=== PATIENT | female | born 1995 | race African-American/Black ===

== ENCOUNTER 2016-10-10 08:14 | Inpatient (IN) | payer MEDICAID ==
[~2016-10-10] VITALS: Ht 162.6 cm; Wt 76.6 kg
[2016-10-10] MEDS ORDERED: PRENAT PO (08:30)
[2016-10-10] MEDS ORDERED: FER325 PO (08:30)
[2016-10-10] MEDS ORDERED: CALC600T11 PO (08:30)
[2016-10-10] MEDS ORDERED: FOLI-49 PO (08:30)
[2016-10-10 08:31] VITALS: Ht 162.6 cm; Wt 76.6 kg
[2016-10-10 08:32] VITALS: BP 121/76; PULSE 85; RESP 18
--- NOTE | 2016-10-10 13:57 | HP ---
Date/Time of Note Date/Time of Note DATE: 10/10/16 TIME: 13:56 OB - History Hx of Present Free Text/Dictation 38+6 wks Labor : 1 Para: 0 Care: Good Care Ultrasounds: Normal mid trimester US Obstetrical Complications: None Medical Complications: None Past Family/Social History * Past Medical, Surgical, Family and Obstetric Histories reviewed from chart. OB Admission Exam Vital Signs Vital Signs Vital Signs Date Time Temp Pulse Resp B/P Pulse Ox O2 Delivery O2 Flow Rate FiO2 10/10/16 08:32 98.6 85 18 121/76 97 Room Air Physical Exam Abdomen: WNL Extremities: Normal Cervical Dilatation: 3cm Effacement: 75% Station: -1 Membranes: Intact Heart Rate: 140's Accelerations: Accelerations Present Decelerations: No Decelerations Varibility: Moderate Contractions on Admission: < 5 Minutes Apart OB Assessment/Plan Reason for admission: observation Plan: Expectant Management YUE CLAROS M.D. Oct 10, 2016 13:57
--- NOTE | 2016-10-10 14:34 | RADRPT ---
PROCEDURE: US OB biophysical profile. CLINICAL INDICATION: decreased movements, contractions TECHNIQUE: Multiple sonographic images of the pelvis were obtained. The images were reviewed on a PACS workstation. COMPARISON: No prior studies are available for comparison. FINDINGS: There is a single viable intrauterine gestation. Cardiac activity is present with 137 beats per min mcgrath. There is a vertex presentation. The placenta is anterior. There is no evidence of placental abruption. There is a normal amount of amniotic fluid with an NOEL = 19.2 cm. Biophysical profile: movement 2/2 tone 2/2. breathing 2/2 NOEL 2/2 Total 10/05 RPTAT: AA . IMPRESSION: Normal biophysical profile. . .Malcolm Caceres MD, MD Date Time Electronically viewed and signed by .Malcolm Caceres MD, MD on 10/10/2016 14:34 .S/
--- NOTE | 2016-10-10 14:35 | TRIAGE ---
OB Triage Datetime Report Generated by CPN: 10/10/2016 14:34 Datetime: 10/10/2016 14:00 Stage of : OB Triage Maternal Assessment Level of Consciousness: Fully Conscious Labor Evaluation Frequency: 1-3 Monitor Mode: External Duration (sec)2399: 80-100 Quality: Mild Resting Tone Two Strike: Relaxed Heart Rate FHR Baseline Rate: 130 Monitor Mode: External US Variability: Moderate 6-25 bpm Accelerations: 15X15 Decelerations: None Pain Assessment Pain Scale: 6 Pain Presence: Intermittent Pain Type: Cramping Pain Location: Abdomen Pain Goal: 3 Pain Relief Measures: Comfort Measures Membrane Status: Intact Vaginal Bleeding: None Datetime: 10/10/2016 13:09 Vaginal Exam Dilatation (cms): 2.0 Effacement (%): 60 Station: -2 [facility]: Normal Show Cervix, Consistency: Moderate Cervix, Position: Midposition Datetime: 10/10/2016 13:07 Monitor Mode: External Monitor Mode: External US Datetime: 10/10/2016 10:44 Presentation 'A': Cephalic Datetime: 10/10/2016 10:30 Stage of : OB Triage Maternal Assessment Level of Consciousness: Fully Conscious Labor Evaluation Frequency: 3-7 Monitor Mode: External Duration (sec)2399: 80-100 Quality: Mild Resting Tone Two Strike: Relaxed Heart Rate FHR Baseline Rate: 130 Monitor Mode: External US Variability: Moderate 6-25 bpm Accelerations: 15X15 Decelerations: None Pain Assessment Pain Scale: 6 Pain Presence: Intermittent Pain Type: Cramping Pain Location: Abdomen Pain Goal: 3 Pain Relief Measures: Comfort Measures Membrane Status: Intact Vaginal Bleeding: None Datetime: 10/10/2016 10:21 Vaginal Exam Dilatation (cms): 1.5 Effacement (%): 60 Station: -2 Exam By: NEIL Vaginal Bleeding: Scant Cervix, Consistency: Moderate Cervix, Position: Posterior Datetime: 10/10/2016 09:30 Stage of : OB Triage Labor Evaluation Frequency: 3-6 Monitor Mode: External Quality: Mild Resting Tone Two Strike: Relaxed Heart Rate FHR Baseline Rate: 125 Monitor Mode: External US Variability: Moderate 6-25 bpm Accelerations: 15X15 Decelerations: None Category: Category I Datetime: 10/10/2016 08:27 Assessment Type: Triage Maternal Assessment Level of Consciousness: Fully Conscious DTR's/Clonus: DTRs 2+; No Clonus Headache: Denies Blurred Vision: No Respiratory Effort: Unlabored; Regular Rhythm; Equal Expansion Breath Sounds, Left: Clear and Equal Breath Sounds, Right: Clear and Equal Nausea/Vomiting: Denies RUQ Epigastric Pain: Denies Lower Extremities Edema: None Degree: None Upper Extremities Edema: None Degree: None Facial Edema: None Fall Risk Assessment History of Falling: (0) No Secondary Diagnosis: (0) No Ambulatory Aid: (0) Bedrest/Nurse Assist IV Therapy: (0) No Gait: (0) Normal/Bedrest/Immobile Mental Status: (0) Oriented to Own Ability Fall Score: 0 Fall Risk Score Definition: No Risk: No action required Datetime: 10/10/2016 08:25 Time of Arrival: 10/10/2016 08:07 EGA: 38.6 Arrived By: Ambulatory Arrived From: Home Chief Complaint: C/O UC'S AND SPOTTING Movement: Present Contractions: Irregular Rupture of Membranes: Denies Vaginal Bleeding: Scant Vaginal Discharge: Present Recent Sexual Intercouse: Denies Abdominal Trauma: Not Applicable Patient Complaints: Contractions; Cramping Time Provider Notified: 10/10/2016 10:45 Provider Notified: [email or web address] Initial Plan: EFM, SVE/BPP Datetime: 10/10/2016 08:23 Monitor Mode: External Monitor Mode: External US
[2016-10-10] MEDS ORDERED: METHYLERGONOVINE 0.2 MG INJ IM PRN (15:00)
[2016-10-10] MEDS ORDERED: IBUPROFEN 600 MG TAB PO PRN (15:00)
[2016-10-10] MEDS ORDERED: OXYTOCIN 30 UNITS/LR 500 ML IV PRN (15:00)
[2016-10-10] MEDS ORDERED: MISOPROSTOL 200 MCG TAB PR PRN (15:00)
[2016-10-10] MEDS ORDERED: OXYTOCIN 30 UNITS/LR 500 ML IV SCH ×2 (15:00)
[2016-10-10] MEDS ORDERED: CARBOPROST 250 MCG INJ IM PRN (15:00)
[2016-10-10] MEDS ORDERED: AMPICILLIN 2 GM/NS (PMX) 100 ML IV ONE (15:00)
[2016-10-10] MEDS ORDERED: LIDOCAINE 1% (MPF) 30 ML INJ INJ PRN (15:00)
[2016-10-10] MEDS: LACTATED RINGER'S 1,000 ML IV SCH ×2 (15:10→23:21)
[2016-10-10 15:54] LABS: BASOPHILS % 0.3 % (0.0-2.0); EOSINOPHILS # 0.1 10^3/ul (0.0-0.5); EOSINOPHILS % 0.9 % (0.0-7.0); HEMATOCRIT 44.6 % (37.0-47.0); HEMOGLOBIN 14.6 g/dl (12.0-16.0); LYMPHOCYTES # 1.8 10^3/ul (0.8-2.9); LYMPHOCYTES % 22.6 % (18.0-55.0); MEAN CORPUSCULAR HEMOGLOBIN 28.6 pg (29.0-33.0); MEAN CORPUSCULAR HGB CONC 32.7 g/dl (32.0-37.0); MEAN CORPUSCULAR VOLUME 87.3 fl (72.0-104.0); MONOCYTE # 0.8 10^3/ul (0.3-0.9); MONOCYTES % 10.3 % (0.0-13.0); NEUTROPHIL # 5.1 10^3/ul (1.6-7.5); NEUTROPHILS % 64.9 % (30.0-74.0); PLATELET COUNT 300 10^3/UL (140-415); RED BLOOD COUNT 5.11 10^6/ul (4.20-5.40); RED CELL DISTRIBUTION WIDTH 19.9 % (11.5-14.5); WHITE BLOOD COUNT 7.8 10^3/ul (4.8-10.8)
[2016-10-10] MEDS ORDERED: LACTATED RINGER'S 1,000 ML IV PRN (16:00)
[2016-10-10 16:07] LABS: INR 0.95; PROTIME 12.7 Sec (12.2-14.2)
[2016-10-10 16:08] LABS: PARTIAL THROMBOPLASTIN TIME 31.1 Sec (25.0-35.0)
[2016-10-10] MEDS: AMPICILLIN 1 GM/NS (PMX) 50 ML IV SCH ×2 (19:20→23:21)
[2016-10-10] MEDS: BUTORPHANOL 2 MG INJ IV PRN (22:37)
[2016-10-10] MEDS ORDERED: ONDANSETRON 4 MG INJ IV PRN (23:00)
[2016-10-11] MEDS: BUTORPHANOL 2 MG INJ IV PRN (01:39)
[2016-10-11] MEDS ORDERED: FENTAnyl 2MCG/ML-ROPIV 0.2% 100 ML ONE (04:03)
[2016-10-11] MEDS: AMPICILLIN 1 GM/NS (PMX) 50 ML IV SCH ×3 (04:20→11:03)
[2016-10-11] MEDS: LACTATED RINGER'S 1,000 ML IV SCH (04:20)
[2016-10-11] MEDS ORDERED: OXYTOCIN 30 UNITS/LR 500 ML IV SCH (05:00)
[2016-10-11] MEDS ORDERED: FENTAnyl 2MCG/ML-ROPIV 0.2% 100 ML BAG EPI SCH (05:30)
[2016-10-11] MEDS ORDERED: NALOXONE (0.4 MG/ML) INJ IV PRN (05:30)
[2016-10-11] MEDS ORDERED: OXYCODONE/ASPIRIN (4.88/325) TAB PO PRN (07:30)
[2016-10-11] MEDS ORDERED: ONDANSETRON 4 MG INJ IV PRN (09:00)
[2016-10-11] MEDS ORDERED: DEXTROSE 5%-LR 1,000 ML IV SCH (09:30)
[2016-10-11] MEDS ORDERED: MINERAL OIL LIGHT 10 ML VIAL TOP ONE (12:00)
--- NOTE | 2016-10-11 12:46 | LDN ---
Date/Time of Note Date/Time of Note DATE: 10/11/16 TIME: 12:45 Delivery Summary term preg NSD, W/O COMPLICATIONS Placenta Delivered: Spontaneously Meconium: none Perineal laceration: 2 Anesthesia type: Epidural Estimated blood loss: 350 Sponge & Needle done & correct: Yes All needle counts correct: Yes Problems: SALVADOR IGLESIAS MD Oct 11, 2016 12:46
[2016-10-11] MEDS ORDERED: LACTATED RINGER'S 1,000 ML IV* SCH (14:45)
[2016-10-11] MEDS ORDERED: CARBOPROST 250 MCG INJ IM PRN (15:00)
[2016-10-11] MEDS ORDERED: ZOLPIDEM 5 MG TAB PO PRN (15:00)
[2016-10-11] MEDS ORDERED: SENNA/DOCUSATE NA (8.6MG/50MG) TAB PO PRN (15:00)
[2016-10-11] MEDS ORDERED: LANOLIN 7 GM TUBE TOP PRN (15:00)
[2016-10-11] MEDS ORDERED: OXYTOCIN 30 UNITS/LR 500 ML IV PRN (15:00)
[2016-10-11] MEDS ORDERED: MAGNESIUM HYDROXIDE 30ML CUP PO PRN (15:00)
[2016-10-11] MEDS ORDERED: METHYLERGONOVINE 0.2 MG INJ IM PRN (15:00)
[2016-10-11] MEDS ORDERED: ACETAMINOPHEN 325 MG TAB PO PRN (15:00)
[2016-10-11] MEDS ORDERED: DIPHENHYDRAMINE 25 MG CAP PO PRN (15:00)
[2016-10-11] MEDS ORDERED: MISOPROSTOL 200 MCG TAB PR PRN (15:00)
[2016-10-11 15:50] VITALS: BP 109/60; PULSE 63; RESP 16
[2016-10-11] MEDS: OXYTOCIN 30 UNITS/LR 500 ML IV SCH ×2 (16:59→18:45)
[2016-10-11] MEDS ORDERED: IBUPROFEN 800 MG TAB PO SCH (18:00)
[2016-10-11] MEDS: BENZOCAINE 20% 56 ML SPRAY TOP PRN (18:32)
[2016-10-11] MEDS: WITCH HAZEL/GLYCERIN PAD PR PRN (18:32)
[2016-10-11] MEDS: HYDROCODONE/APAP (5/325) TAB PO PRN (19:07)
[2016-10-11 20:00] VITALS: BP 111/67; PULSE 79; RESP 18
[2016-10-12] VITALS: BP 106/58; PULSE 88; RESP 18
[2016-10-12 04:00] VITALS: BP 120/56; PULSE 72; RESP 18
[2016-10-12] MEDS: HYDROCODONE/APAP (5/325) TAB PO PRN (04:31)
[2016-10-12 09:33] VITALS: BP 126/83; PULSE 99; RESP 14
[2016-10-12 10:48] LABS: BASOPHILS % 0.2 % (0.0-2.0); EOSINOPHILS # 0.1 10^3/ul (0.0-0.5); HEMATOCRIT 39.3 % (37.0-47.0); HEMOGLOBIN 12.7 g/dl (12.0-16.0); LYMPHOCYTES # 2.4 10^3/ul (0.8-2.9); LYMPHOCYTES % 21.4 % (18.0-55.0); MEAN CORPUSCULAR HEMOGLOBIN 28.8 pg (29.0-33.0); MEAN CORPUSCULAR HGB CONC 32.3 g/dl (32.0-37.0); MEAN CORPUSCULAR VOLUME 89.1 fl (72.0-104.0); MEAN PLATELET VOLUME 10.7 fl (7.4-10.4); MONOCYTE # 1.3 10^3/ul (0.3-0.9); MONOCYTES % 11.4 % (0.0-13.0); NEUTROPHILS % 65.5 % (30.0-74.0); PLATELET COUNT 258 10^3/UL (140-415); RED BLOOD COUNT 4.41 10^6/ul (4.20-5.40); RED CELL DISTRIBUTION WIDTH 19.6 % (11.5-14.5)
--- NOTE | 2016-10-12 12:33 | DS ---
Date/Time of Note Date/Time of Note DATE: 10/12/16 TIME: 12:32 Discharge Summary Admission/Discharge Info Admit Date/Time Oct 10, 2016 at 13:55 Discharge Date/Time Discharge Diagnosis term preg, NSD Patient Condition: Stable Hospital Course unremarkable Home Meds Reported Medications Ferrous Sulfate* (Ferrous Sulfate*) 325 Mg Tabec, 325 MG PO DAILY, TAB 10/10/16 Calcium Carbonate* (Calcium Carbonate*) 600 MG Ca Tab, 600 MG PO DAILY, TAB 10/10/16 Multivit/Min/Fol Ac/Iron/Pren* ( S*) 1 Tab Tab, 1 TAB PO DAILY, TAB 10/10/16 Folic Acid* (Folic Acid*) 1 Mg Tablet, 1 MG PO DAILY, TAB 10/10/16 Primary Care Provider Care Physician No Primary Pending Labs Laboratory Tests Test 10/12/16 10:33 White Blood Count 11.010^3/ul (4.8-10.8) Red Blood Count 4.4110^6/ul (4.20-5.40) Hemoglobin 12.7g/dl (12.0-16.0) Hematocrit 39.3% (37.0-47.0) Mean Corpuscular Volume 89.1fl (72.0-104.0) Mean Corpuscular Hemoglobin 28.8pg (29.0-33.0) Mean Corpuscular Hemoglobin Concent 32.3g/dl (32.0-37.0) Red Cell Distribution Width 19.6% (11.5-14.5) Platelet Count 08275^3/UL (140-415) Mean Platelet Volume 10.7fl (7.4-10.4) Neutrophils % 65.5% (30.0-74.0) Lymphocytes % 21.4% (18.0-55.0) Monocytes % 11.4% (0.0-13.0) Eosinophils % 1.0% (0.0-7.0) Basophils % 0.2% (0.0-2.0) Nucleated Red Blood Cells % 0.0/100WBC (0.0-0.0) Neutrophils # (Manual) 7.210^3/ul (1.7-7.5) Lymphocytes # 2.410^3/ul (0.8-2.9) Monocytes # 1.310^3/ul (0.3-0.9) Eosinophils # 0.110^3/ul (0.0-0.5) Basophils # 0.010^3/ul (0.0-0.1) Nucleated Red Blood Cells # 0.010^3/ul (0.0-0.0) SALVADOR IGLESIAS MD Oct 12, 2016 12:33
[2016-10-12 16:00] VITALS: BP 110/65; PULSE 84
[2016-10-12 20:00] VITALS: BP 97/62; PULSE 70; RESP 18
[2016-10-13 04:00] VITALS: BP 120/68; PULSE 70; RESP 18
[2016-10-13 08:00] VITALS: BP 117/77; PULSE 65; RESP 18
[2016-10-13] MEDS ORDERED: MEASLES,MUMPS,RUBELLA VACCINE INJ SC* ONE (09:00)
[2016-10-13] MEDS ORDERED: DIPHTH/TET/ACEL PERTUSS (ADULT) 0.5 ML VIAL IM* ONE (09:00)
[2016-10-13] MEDS ORDERED: VARICELLA VACCINE LIVE/PF 1,350 UNIT/0.5 ML ML SC* ONE (09:00)
[2016-10-13] MEDS: WITCH HAZEL/GLYCERIN PAD PR PRN (11:53)
[2016-10-13] MEDS: BENZOCAINE 20% 56 ML SPRAY TOP PRN (11:54)
--- NOTE | 2016-10-13 14:06 | PN ---
Date/Time of Note Date/Time of Note DATE: 10/13/16 TIME: 14:04 OB Subjective Subjective Subjective Denies any complaint. Breast-feeding. Ambulating. Vaginal bleeding in the amount of menses. Denies any dizziness, lightheadedness. Denies any fever or chills. OB Objective Objective Objective General appearance: Alert and oriented 4. Does not appear to be in any acute distress. Abdomen: Soft, fundal height palpable at the level of umbilicus and no fundal tenderness. Breasts: No evidence of engorgement of mastitis or fissure Extremities: No calf tenderness negative Homans sign no click, Hematology - 72 Hrs Test 10/10/16 15:10 10/12/16 10:33 White Blood Count 7.810^3/ul (4.8-10.8) 11.010^3/ul (4.8-10.8) #H Red Blood Count 5.1110^6/ul (4.20-5.40) 4.4110^6/ul (4.20-5.40) Hemoglobin 14.6g/dl (12.0-16.0) 12.7g/dl (12.0-16.0) Hematocrit 44.6% (37.0-47.0) 39.3% (37.0-47.0) Mean Corpuscular Volume 87.3fl (72.0-104.0) 89.1fl (72.0-104.0) Mean Corpuscular Hemoglobin 28.6pg (29.0-33.0) L 28.8pg (29.0-33.0) L Mean Corpuscular Hemoglobin Concent 32.7g/dl (32.0-37.0) 32.3g/dl (32.0-37.0) Red Cell Distribution Width 19.9% (11.5-14.5) H 19.6% (11.5-14.5) H Platelet Count 95577^3/UL (140-415) 12217^3/UL (140-415) Mean Platelet Volume 11.0fl (7.4-10.4) H 10.7fl (7.4-10.4) H Neutrophils % 64.9% (30.0-74.0) 65.5% (30.0-74.0) Lymphocytes % 22.6% (18.0-55.0) 21.4% (18.0-55.0) Monocytes % 10.3% (0.0-13.0) 11.4% (0.0-13.0) Eosinophils % 0.9% (0.0-7.0) 1.0% (0.0-7.0) Basophils % 0.3% (0.0-2.0) 0.2% (0.0-2.0) Nucleated Red Blood Cells % 0.0/100WBC (0.0-0.0) 0.0/100WBC (0.0-0.0) Neutrophils # 5.110^3/ul (1.6-7.5) Lymphocytes # 1.810^3/ul (0.8-2.9) 2.410^3/ul (0.8-2.9) Monocytes # 0.810^3/ul (0.3-0.9) 1.310^3/ul (0.3-0.9) H Eosinophils # 0.110^3/ul (0.0-0.5) 0.110^3/ul (0.0-0.5) Basophils # 0.010^3/ul (0.0-0.1) 0.010^3/ul (0.0-0.1) Nucleated Red Blood Cells # 0.010^3/ul (0.0-0.0) 0.010^3/ul (0.0-0.0) Neutrophils # (Manual) 7.210^3/ul (1.7-7.5) OB Assessment/Plan Other Assessment: Status post day #2 Doing well DC home Follow-up in 6 weeks with her OB clinic REJI CAMPBELL MD Oct 13, 2016 14:06
== END 2016-10-13 17:15 | disposition home or self-care (01) | DRG 775 ==
LOC: OBT 08:14 → L-D 08:15 → OBT 13:55 → PP1 10-11 15:36
PROVIDERS: ADMIT Obstetrics & Gynecology; ATTEND Obstetrics & Gynecology
PROC: 10E0XZZ Delivery of Products of Conception, External Approach (ICD-10-PCS; principal; 2016-10-11)
DX: O80 Encounter for full-term uncomplicated delivery (principal); Z37.0 Single live birth; Z3A.38 38 weeks gestation of pregnancy
CPT/HCPCS: 62319; 76818; 85025; 85610; 85730; 86592; 86900; 86901; 87340; 90715; 90716; G0463; J0290; J0595; J2405; J2590; J3010; J7120; J7121